=== PATIENT | male | born 1980 | race Caucasian/White ===

== ENCOUNTER 2017-11-06 17:27 | Emergency (ER) | payer BC ==
[2017-11-06 17:46] VITALS: BP 120/77; PULSE 87; TEMP 98.4; BMI 31.5
[2017-11-06 18:13] LABS: PH,URINE 5.5 (4.5-8); URINE APPEARANCE Clear; URINE BILIRUBIN Negative (NEGATIVE); URINE COLOR YELLOW; URINE GLUCOSE (UA) Negative (NEGATIVE); URINE KETONE Negative (NEGATIVE); URINE LEUK ESTERASE Negative (NEGATIVE); URINE NITRITE Negative (NEGATIVE); URINE PROTEIN 2+ (NEGATIVE); URINE UROBILINOGEN 0.2 (0.2-1.0)
[2017-11-06 18:38] LABS: URINE BACTERIA FEW /hpf (NEGATIVE)
[2017-11-06] MEDS ORDERED: SODIUM CHLORIDE 0.9% 1000 ML INFUS.BAG IV ONE (18:55)
--- NOTE | 2017-11-06 18:58 | PDOC ---
History of Present Illness - General History Source: Patient Exam Limitations: No Limitations <EstefaniaCordell riveraa - Last Filed: 11/06/17 18:56> - History of Present Illness Initial Comments: 11/06/17 18:58 Patient is a 37 M, with no significant PMHx, who presents with 2 days of body aches. Patient states that 8 days ago he felt similarly to how he is feeling now. He went to urgent care and was told he had the flu, but was not swabbed. He was given tamiflu for 5 days and felt better. Yesterday he states that his body aches returned and have been getting progressively worse. He is also complaining of weakness, fatigue, coughing (brown sputum), and diffuse headache. He states he took one Advil today but it did not improve his symptoms. Denies drug use, heavy lifting or exercise. Denies, fever, nausea, vomiting. Social Hx: Quit smoking 5 months ago. <Shahana Levin - Last Filed: 11/06/17 20:17> - General Chief Complaint: Pain Stated Complaint: BODY ACHES Time Seen by Provider: 11/06/17 17:39 Past History - Past Medical History COPD: No - Suicide/Smoking/Psychosocial Hx Smoking History: Never smoked Have you smoked in the past 12 months: No Information on smoking cessation initiated: No Hx Alcohol Use: No Drug/Substance Use Hx: No Substance Use Type: None <Sade Reyes - Last Filed: 11/06/17 18:56> <Shahana Levin - Last Filed: 11/06/17 20:17> - Past Medical History Allergies/Adverse Reactions: Allergies Allergy/AdvReac Type Severity Reaction Status Date / Time No Known Allergies Allergy Verified 11/06/17 17:57 Home Medications: Ambulatory Orders Alprazolam [Xanax] 0.5 mg PO PRN PRN 11/06/17 Azithromycin 250 mg PO DAILY #4 tablet 11/06/17 Review of Systems - Review of Systems Comments:: 11/06/17 18:58 GENERAL/CONSTITUTIONAL: No fever. +chills. +weakness. HEAD, EYES, EARS, NOSE AND THROAT: No change in vision. No ear pain or discharge. No sore throat. GASTROINTESTINAL: No nausea, vomiting, diarrhea or constipation. GENITOURINARY: No dysuria, frequency, or change in urination. CARDIOVASCULAR: No chest pain or shortness of breath. RESPIRATORY: +productive cough (brown sputum),no wheezing, or hemoptysis. MUSCULOSKELETAL: +myalgias. No neck or back pain. SKIN: No rash NEUROLOGIC: +diffuse headache, no vertigo, loss of consciousness, or change in strength/sensation. ENDOCRINE: No increased thirst. HEMATOLOGIC/LYMPHATIC: No anemia, easy bleeding, or history of blood clots. ALLERGIC/IMMUNOLOGIC: No hives or skin allergy. <Shahana Levin - Last Filed: 11/06/17 20:17> *Physical Exam - Vital Signs Last Vital Signs Temp Pulse Resp BP Pulse Ox 98.4 F 87 20 120/77 98 11/06/17 17:28 11/06/17 17:28 11/06/17 17:28 11/06/17 17:28 11/06/17 17:28 <Sade Reyes - Last Filed: 11/06/17 18:56> - Vital Signs Last Vital Signs Temp Pulse Resp BP Pulse Ox 98.4 F 87 20 120/77 98 11/06/17 17:28 11/06/17 17:28 11/06/17 17:28 11/06/17 17:28 11/06/17 17:28 - Physical Exam Comments: 11/06/17 18:59 GENERAL: Awake, alert, and fully oriented, in no acute distress HEAD: No signs of trauma EYES: PERRLA, EOMI, sclera anicteric, conjunctiva clear ENT: Auricles normal inspection, nares patent, Moist mucosa NECK: Normal ROM, supple, no lymphadenopathy, JVD, or masses LUNGS: Breath sounds equal, clear to auscultation bilaterally. No wheezes, and no crackles HEART: Regular rate and rhythm, normal S1 and S2, no murmurs, rubs or gallops ABDOMEN: Soft, nontender, normoactive bowel sounds. No guarding, no rebound. No masses EXTREMITIES: Normal range of motion, no edema. No clubbing or cyanosis. No cords, erythema, or tenderness NEUROLOGICAL: Normal speech SKIN: Warm, Dry, normal turgor, no rashes or lesions noted. <Shahana Levin - Last Filed: 11/06/17 20:17> ED Treatment Course - ADDITIONAL ORDERS Additional order review: Laboratory Results 11/06/17 17:58 Urine Color Yellow Urine Appearance Clear Urine pH 5.5 Ur Specific [place] >= 1.030 H Urine Protein 2+ H Urine Glucose (UA) Negative Urine Ketones Negative Urine Blood 3+ H Urine Nitrite Negative Urine Bilirubin Negative Urine Urobilinogen 0.2 Ur Leukocyte Esterase Negative Urine RBC 10-20 Urine WBC 2-5 Urine Bacteria Few - RADIOLOGY Radiology Studies Ordered: Category Date Time Status CHEST PA & LAT [RAD] Stat Radiology 11/06/17 18:02 Taken <Sade Reyes - Last Filed: 11/06/17 18:56> - LABORATORY CBC & Chemistry Diagram: 11/06/17 18:52 11/06/17 18:52 - ADDITIONAL ORDERS Additional order review: Laboratory Results 11/06/17 17:58 Urine Color Yellow Urine Appearance Clear Urine pH 5.5 Ur Specific [place] >= 1.030 H Urine Protein 2+ H Urine Glucose (UA) Negative Urine Ketones Negative Urine Blood 3+ H Urine Nitrite Negative Urine Bilirubin Negative Urine Urobilinogen 0.2 Ur Leukocyte Esterase Negative Urine RBC 10-20 Urine WBC 2-5 Urine Bacteria Few <Shahana Levin - Last Filed: 11/06/17 20:17> Medical Decision Making - Medical Decision Making 11/06/17 18:56 37 yo male prior smoker ( quit 6 mo ago) here wtih c/o cough congestion and myalgia. denies fever no chills. was seen in urgent care and started on tamiflu told he had flu. now c/o ramos, myalgia fatigue cough productive yellow/ brown pleghm. generalized weakness. denies drug, no heavy lifting or exercise. on exam normal exam plan : differential myalgia, dehydration, flu less likely due to abscense of fever, rhabdomyolysis. plan labs ivf, cxz r/o pna. cxr engative for infiltrate. ua blood. iv hydrate awaiting blood work. <Sade Reyes - Last Filed: 11/06/17 18:56> *DC/Admit/Observation/Transfer <Sade Reyes - Last Filed: 11/06/17 18:56> - Attestations Scribe Attestion: 11/06/17 19:00 Documentation prepared by Shahana Levin, acting as medical billing and coding instructor for Sade Reyes MD. <Shahana Levin - Last Filed: 11/06/17 20:17> Diagnosis at time of Disposition: Bronchitis, Asymptomatic microscopic hematuria - Discharge Dispostion Disposition: HOME Condition at time of disposition: Stable - Prescriptions Prescriptions: Azithromycin 250 mg PO DAILY #4 tablet - Patient Instructions Additional Instructions: Take azithromycin 1 tablet a day for 4 days take your next dose tomorrow you were given the first dose in the emergency room. Stop the Tamiflu. Follow-up with a urologist regarding the blood in your urine, Tylenol or Motrin as needed for fevers or body aches Return to the emergency department immediately with ANY new, persistent or worsening symptoms. Continue any medications as previously prescribed by your physician. You should follow up with your primary doctor as soon as possible regarding today's emergency department visit. . Please make sure your doctor reviews the results of your emergency evaluation. Thank you for coming to the Emergency Department today for your care. It was a pleasure to see you today. Please note that your evaluation is INCOMPLETE until you follow-up with your doctor.
[2017-11-06 19:08] LABS: BASO % 0.7 % (0-2.0); EOS % 2.2 % (0-4.5); HEMATOCRIT 44.1 % (35.4-49); HEMOGLOBIN 15.1 GM/dl (11.7-16.9); LYMPH % 13.4 % (8-40); MCH 29.8 pg (25.7-33.7); MCHC 34.2 g/dl (32.0-35.9); MEAN CELL VOLUME 87.1 fl (80-96); MEAN PLT VOLUME 8.4 fl (7.5-11.1); NEUT % 78.7 % (42.8-82.8); PLATELET COUNT 228 K/MM3 (134-434); RBC 5.06 M/mm3 (4.00-5.60); RDW 11.9 % (11.9-15.9); WHITE BLOOD COUNT 13.9 K/mm3 (4.0-10.8)
[2017-11-06 19:16] LABS: ALBUMIN 4.2 g/dl (3.5-5.0); ALK PHOS 65 U/L (32-92); ANION GAP 3 (8-16); BILIRUBIN,TOTAL 0.7 mg/dl (0.2-1.0); BLOOD UREA NITROGEN 15 mg/dl (7-18); CALCIUM 8.6 mg/dl (8.4-10.2); CHLORIDE 103 mmol/L (98-107); CO2 29 mmol/L (22-28); CREATININE 1.2 mg/dl (0.6-1.3); GLUCOSE,RANDOM 86 mg/dl (74-106); POTASSIUM 3.9 mmol/L (3.5-5.1); SGOT/AST 21 U/L (10-42); SGPT/ALT 20 U/L (10-40); SODIUM 135 mmol/L (136-145); TOT PROT 7.1 g/dl (6.4-8.3)
[2017-11-06] MEDS ORDERED: AZITHROMYCIN 250 MG TABLET PO ONE (19:23)
--- NOTE | 2017-11-06 19:26 | PDOC ---
*Physical Exam - Vital Signs Last Vital Signs Temp Pulse Resp BP Pulse Ox 98.4 F 87 20 120/77 98 11/06/17 17:28 11/06/17 17:28 11/06/17 17:28 11/06/17 17:28 11/06/17 17:28 ED Treatment Course - LABORATORY CBC & Chemistry Diagram: 11/06/17 18:52 11/06/17 18:52 - ADDITIONAL ORDERS Additional order review: Laboratory Results 11/06/17 11/06/17 18:52 17:58 Sodium 135 L Potassium 3.9 Chloride 103 Carbon Dioxide 29 H Anion Gap 3 L BUN 15 Creatinine 1.2 Creat Clearance w eGFR > 60 Random Glucose 86 Calcium 8.6 Total Bilirubin 0.7 AST 21 ALT 20 Alkaline Phosphatase 65 Creatine Kinase 90 Total Protein 7.1 Albumin 4.2 Urine Color Yellow Urine Appearance Clear Urine pH 5.5 Ur Specific [place] >= 1.030 H Urine Protein 2+ H Urine Glucose (UA) Negative Urine Ketones Negative Urine Blood 3+ H Urine Nitrite Negative Urine Bilirubin Negative Urine Urobilinogen 0.2 Ur Leukocyte Esterase Negative Urine RBC 10-20 Urine WBC 2-5 Urine Bacteria Few 11/06/17 18:52 RBC 5.06 MCV 87.1 MCHC 34.2 RDW 11.9 MPV 8.4 Neutrophils % 78.7 Lymphocytes % 13.4 Monocytes % 5.0 Eosinophils % 2.2 Basophils % 0.7 - Medications Given in the ED: ED Medications Discontinued Medications Generic Name Dose Route Start Last Admin Trade Name Freq PRN Reason Stop Dose Admin Sodium Chloride 1,000 ml 11/06/17 18:55 11/06/17 19:00 Normal Saline - IV 11/06/17 18:56 1,000 ml ONCE ONE Administration Progress Note - Progress Note Progress Note: Care of this patient was transferred to sd from Dr. [place] at 1900 hrs. This is a 37-year-old male who comes in complaining of body aches and upper respiratory tract type symptoms. Patient had an x-ray that shows some peribronchial thickening consistent with some bronchitis Patient labs show an elevated white count of 13.5 but no left shift We'll start patient on Zithromax for the bronchitis Patient discharged home will follow-up with his primary care doctor regarding the urine analysis that has some blood in it. *DC/Admit/Observation/Transfer Diagnosis at time of Disposition: Bronchitis, Asymptomatic microscopic hematuria - Discharge Dispostion Disposition: HOME Condition at time of disposition: Stable Decision to Admit order: No - Referrals - Patient Instructions Additional Instructions: Take azithromycin 1 tablet a day for 4 days take your next dose tomorrow you were given the first dose in the emergency room. Stop the Tamiflu. Follow-up with a urologist regarding the blood in your urine, Tylenol or Motrin as needed for fevers or body aches Return to the emergency department immediately with ANY new, persistent or worsening symptoms. Continue any medications as previously prescribed by your physician. You should follow up with your primary doctor as soon as possible regarding today's emergency department visit. . Please make sure your doctor reviews the results of your emergency evaluation. Thank you for coming to the Emergency Department today for your care. It was a pleasure to see you today. Please note that your evaluation is INCOMPLETE until you follow-up with your doctor. - Post Discharge Activity
[2017-11-06] MEDS ORDERED: AZITHROMYCIN 250 MG TABLET ONE (19:27)
== END 2017-11-06 19:32 | disposition home or self-care (01) ==
LOC: FER 17:27
PROC: 3E0337Z Introduction of Electrolytic and Water Balance Substance into Peripheral Vein, Percutaneous Approach (ICD-10-PCS; principal; 2017-11-06)
DX: J20.9 Acute bronchitis, unspecified (principal); R31.21 Asymptomatic microscopic hematuria
CPT/HCPCS: 36415; 71046-TC-FY; 80053; 81003; 81015; 82550; 85025; 99282-25; J7030

== ENCOUNTER 2019-01-18 08:05 | Emergency (ER) | payer BC ==
[2019-01-18 08:11] VITALS: BP 133/86; PULSE 85; TEMP 98.6; BMI 29.9
[2019-01-18] MEDS ORDERED: LACTATED RINGERS SOLUTION 1000 ML INFUS.BAG IV ONE (08:29)
[2019-01-18] MEDS ORDERED: ONDANSETRON 4 MG/2 ML VIAL IVPUSH ONE (08:29)
--- NOTE | 2019-01-18 08:29 | PDOC ---
History of Present Illness - General Chief Complaint: Diarrhea Stated Complaint: DIARRHEA Time Seen by Provider: 01/18/19 08:28 - History of Present Illness Initial Comments: 01/18/19 08:42 Pt presents to the ED complaining of profuse watery diarrhea, chills and lightheadness. States that he was in his usual state of health until last night , when he experienced >12 episodes of watery stool. also complains of nausea without vomiting. Denies abdominal pain. Denies sick contacts, travel or recent antibiotics use. has eaten the same foods as the patient and is feeling well. Past History - Past Medical History Allergies/Adverse Reactions: Allergies Allergy/AdvReac Type Severity Reaction Status Date / Time No Known Allergies Allergy Verified 11/06/17 17:57 Home Medications: Ambulatory Orders Alprazolam [Xanax] 0.5 mg PO PRN PRN 11/06/17 COPD: No - Suicide/Smoking/Psychosocial Hx Smoking History: Never smoked Have you smoked in the past 12 months: No Information on smoking cessation initiated: No Hx Alcohol Use: No Drug/Substance Use Hx: No Substance Use Type: None Review of Systems - Review of Systems Constitutional: No: Chills, Diaphoresis, Fever, Loss of Appetite, Malaise, Night Sweats, Weakness, Weight Stable, Unintentional Wgt. Loss, Unexplained wgt Loss, Other HEENTM: No: Eye Pain, Blurred Vision, Tearing, Recent change in vision, Double Vision, Cataracts, Ear Pain, Ocular Prothesis, Ear Discharge, Nose Pain, Nose Congestion, Tinnitus, Nose Bleeding, Hearing Loss, Throat Pain, Throat Swelling , Mouth Pain, Dental Problems, Difficulty Swallowing, Mouth Swelling, Other Respiratory: No: Cough, Orthopnea, Shortness of Breath, SOB with Exertion, SOB at Rest, Stridor, Wheezing, Productive cough, Hemoptysis, Other Cardiac (ROS): No: Chest Pain, Edema, Irregular Heart Rate, Lightheadedness, Palpitations, Syncope, Chest Tightness, Other ABD/GI: Yes: Diarrhea, Nausea. No: Abdominal Distended, Abd. Pain w/ defecation , Blood Streaked Bowels, Constipated, Difficulty Swallowing, Poor Appetite, Poor Fluid Intake, Rectal Bleeding, Vomiting, Indigestion, Abdominal cramping, Tarry Stools, Other : No: Symptoms Reported, See HPI, Burning, Dysuria, Discharge, Frequency, Flank Pain, Hematuria, Incontinence, Pain, Urgency, Testicular Mass, Testicular Swelling, Lesions, Testicular Pain, Other Neurological: Yes: Dizziness. No: Headache, Numbness, Paresthesia, Pre- Existing Deficit, Seizure, Tingling, Tremors, Weakness, Unsteady Gait, Ataxia, Other All Other Systems: Reviewed and Negative *Physical Exam - Vital Signs Last Vital Signs Temp Pulse Resp BP Pulse Ox 98.6 F 85 20 133/86 99 01/18/19 08:07 01/18/19 08:07 01/18/19 08:07 01/18/19 08:07 01/18/19 08:07 - Physical Exam Comments: 01/18/19 08:45 Gen: alert, NAD CV: rrr no m/r/g Pulm: CTA b/l Abdomen: soft, non tender non distended Ext: no edema skin: warm and dry neuro: alert and oriented ambulatory with a steady gait, normal mood and affect ED Treatment Course - LABORATORY CBC & Chemistry Diagram: 01/18/19 08:40 01/18/19 08:40 Medical Decision Making - Medical Decision Making 01/18/19 08:46 Pt presents to the ED complaining of diarrhea and nausea. States that he feels dehydrated. Most likely viral gastroenteritis. Will treat with IV hydration and give fluids and reassess. 01/18/19 09:47 feels improved after IVF. Tolerating PO. Will discharge home. *DC/Admit/Observation/Transfer Diagnosis at time of Disposition: Gastroenteritis - Discharge Dispostion Disposition: HOME Condition at time of disposition: Good Decision to Admit order: No - Referrals - Patient Instructions Printed Discharge Instructions: DI for Viral Gastroenteritis -- Adult Additional Instructions: you came to the ED because you were having diarrhea, which is most likely caused by a virus. Return to the ED for abdominal pain, fever, severe nausea and vomiting unable to keep fluids down, lightheadness or passing out. Make sure to drink plenty of fluids, and avoid dairy, spicy and greasy foods. - Post Discharge Activity
[2019-01-18] MEDS ORDERED: SODIUM CHLORIDE 0.9% 500 ML INFUS.BAG IV ONE (08:38)
[2019-01-18] MEDS ORDERED: ONDANSETRON 4 MG/2 ML VIAL ONE (08:43)
[2019-01-18 09:02] LABS: HEMOGLOBIN 16.1 GM/dl (11.7-16.9)
[2019-01-18 09:04] LABS: HEMATOCRIT 47.3 % (35.4-49); MCH 30.4 pg (25.7-33.7); MEAN CELL VOLUME 89.2 fl (80-96); MEAN PLT VOLUME 9.1 fl (7.5-11.1); PLATELET COUNT 217 K/MM3 (134-434); RDW 11.9 % (11.9-15.9); WHITE BLOOD COUNT 12.2 K/mm3 (4.0-10.8)
[2019-01-18 09:09] LABS: ALBUMIN 4.4 g/dl (3.4-5.0); CALCIUM 8.9 mg/dl (8.5-10); CREATININE 1.3 mg/dl (0.55-1.3); POTASSIUM 4.5 mmol/L (3.5-5.1); TOT PROT 7.3 g/dl (6.4-8.2)
[2019-01-18 09:21] LABS: PLATELET ESTIMATE ADEQUATE
== END 2019-01-18 09:59 | disposition home or self-care (01) ==
LOC: FER 08:05
PROC: 3E0337Z Introduction of Electrolytic and Water Balance Substance into Peripheral Vein, Percutaneous Approach (ICD-10-PCS; principal; 2019-01-18)
PROC: 3E033GC Introduction of Other Therapeutic Substance into Peripheral Vein, Percutaneous Approach (ICD-10-PCS; 2019-01-18)
DX: K52.9 Noninfective gastroenteritis and colitis, unspecified (principal)
CPT/HCPCS: 36415; 80053; 85025; 99282-25

== ENCOUNTER 2022-01-16 21:37 | Emergency (ER) | payer BC ==
[2022-01-16 22:04] LABS: HEMATOCRIT 42.6 % (35.4-49); HEMOGLOBIN 15.4 G/dL (11.7-16.9); MCH 31.5 pg (25.7-33.7); MEAN CELL VOLUME 87.2 fl (80-96); MEAN PLT VOLUME 8.8 fl (7.5-11.1); PLATELET COUNT 189.9 10^3/uL (134-434); RBC 4.88 10^6/uL (4.00-5.60); RDW 13.4 % (11.9-15.9); WHITE BLOOD COUNT 10.4 10^3/uL (4.0-10.8)
[2022-01-16 22:08] VITALS: BP 132/93; PULSE 68; TEMP 98.3; BMI 32.1
[2022-01-16 22:23] LABS: ALBUMIN 3.8 g/dl (3.4-5.0); BILIRUBIN,TOTAL 0.5 mg/dl (0.2-1); CALCIUM 8.5 mg/dl (8.5-10); CREATININE 1.5 mg/dl (0.55-1.3); TOT PROT 6.5 g/dl (6.4-8.2)
[2022-01-16 22:35] LABS: PLATELET ESTIMATE ADEQUATE
== END 2022-01-16 22:58 | disposition home or self-care (01) ==
LOC: FER 21:37
DX: R07.9 Chest pain, unspecified (principal)
CPT/HCPCS: 36415; 71046-TC-FY; 80053; 82550; 84484; 85025; 93005; 99285-25

== ENCOUNTER 2022-05-09 18:25 | Emergency (ER) | payer BC ==
[2022-05-09 18:52] VITALS: BP 122/89; PULSE 65; RESP 18; TEMP 97.8; BMI 31.4
== END 2022-05-09 19:45 | disposition home or self-care (01) ==
LOC: FER 18:25
DX: B34.9 Viral infection, unspecified (principal)
CPT/HCPCS: 99282-25